=== PATIENT | male | born 1965 | race Caucasian/White ===

== ENCOUNTER 2017-12-04 07:22 | Emergency (ER) | payer OTHER ==
[~2017-12-04] VITALS: Ht 180.3 cm; Wt 90.7 kg
[~2017-12-04 07:22] MED LIST: CATAFLAM50 MG PO; VASOTEC10 MG PO
[2017-12-04] MEDS ORDERED: NORFLEX100MG PO (10:47)
[2017-12-04] MEDS ORDERED: KETO10TA2 PO (10:47)
== END 2017-12-04 11:02 | disposition home or self-care (01) ==
LOC: ER 07:22
DX: M79.651 Pain in right thigh (principal)

== ENCOUNTER 2023-07-18 09:45 | Emergency (ER) | payer OTHER ==
[~2023-07-18] VITALS: Ht 177.8 cm; Wt 95.3 kg
[~2023-07-18 09:45] MED LIST changes: +KETO10TA2 PO; +NORFLEX100MG PO
[2023-07-18 11:31] LABS: HEMATOCRIT 44.6 % (39.0-48.0); HEMOGLOBIN 15.4 g/dL (13-16.00); MEAN CORPUSCULAR HEMOGLOBIN 33.1 pg (27.00-32.0); MEAN CORPUSCULAR HGB CONC 34.5 g/dl (32.0-36.0); PLATELET COUNT 180 K/uL (150-450); RED BLOOD COUNT 4.65 M/uL (4.00-6.00); RED CELL DISTRIBUTION WIDTH 13.3 % (11.5-14.5)
[2023-07-18 12:18] LABS: ALBUMIN 4.1 gm/dL (3.4-5.0); BILIRUBIN TOTAL 1.05 mg/dL (0.3-1.2); CALCIUM 9.5 mg/dL (8.5-10.1); CREATININE SERUM 0.99 mg/dL (0.70-1.30); GFR 78.2; GLOBULINA 3.5 G/DL (2.4-3.5); POTASSIUM 4.76 mEq/L (3.5-5.1); TOTAL PROTEIN 7.6 gm/dL (6.4-8.2)
== END 2023-07-18 13:35 | disposition home or self-care (01) ==
LOC: ER 09:46
PROVIDERS: General Practice
DX: K52.9 Noninfective gastroenteritis and colitis, unspecified (principal); I10 Essential (primary) hypertension; Z88.0 Allergy status to penicillin; Z88.8 Allergy status to other drugs, medicaments and biological substances; K57.30 Diverticulosis of large intestine without perforation or abscess without bleeding; K40.90 Unilateral inguinal hernia, without obstruction or gangrene, not specified as recurrent